=== PATIENT | female | born 1960 | race Caucasian/White ===

== ENCOUNTER 2023-04-15 09:37 | Emergency (ER) | payer SELFPAY ==
[2023-04-15 10:23] VITALS: BP 138/82; PULSE 80
== END 2023-04-15 11:49 | disposition home or self-care (01) ==
LOC: JP.ED 09:37
DX: J01.00 Acute maxillary sinusitis, unspecified (principal); F17.210 Nicotine dependence, cigarettes, uncomplicated; E78.00 Pure hypercholesterolemia, unspecified; J44.9 Chronic obstructive pulmonary disease, unspecified; E03.9 Hypothyroidism, unspecified
CPT/HCPCS: 71046; 71046-26; 99283